=== PATIENT | female | born 1990 | race Caucasian/White ===

== ENCOUNTER 2017-03-02 18:22 | Emergency (ER) | payer MEDICAID ==
[~2017-03-02] VITALS: Ht 157.5 cm; Wt 56.9 kg
[2017-03-02 18:23] VITALS: BP 118/64
[2017-03-02] MEDS ORDERED: IBUPROFEN 200 MG TABLET PO STA (19:14)
[2017-03-02] MEDS ORDERED: IBUPROFEN 200 MG TABLET ONE (19:33)
== END 2017-03-02 20:33 | disposition home or self-care (01) ==
LOC: ED 20:00
DX: S29.012A Strain of muscle and tendon of back wall of thorax, initial encounter (principal); X58.XXXA Exposure to other specified factors, initial encounter; Y93.89 Activity, other specified; Y99.8 Other external cause status; Y92.89 Other specified places as the place of occurrence of the external cause
CPT/HCPCS: 72072; 99284